=== PATIENT | female | born 1955 | race Caucasian/White ===

== ENCOUNTER 2018-06-29 11:32 | Emergency (ER) | payer BC, SELFPAY ==
[2018-06-29] VITALS (21 sets, daily range): BP systolic 172–211; BP diastolic 82–105; PULSE 99–110; RESP 12–30; TEMP 37–37.2; O2SAT 90–97
--- NOTE | 2018-06-29 11:54 | DI.REPORT_ITS ---
SYMPTOMS/DIAGNOSIS: COUGH PA AND LATERAL CHEST: Comparison is made with April,. The heart size is normal. There is a linear area of atelectasis versus infiltrate seen in the right middle lobe. Minimal linear densities are noted at the left lung base. No pleural effusions are seen. There is no evidence of pneumothorax. IMPRESSION: Right middle lobe atelectasis versus infiltrate.
[2018-06-29 12:04] LABS: Abs Immature Grans 0.02 k/cumm (0.0-0.09); Absolute Basophil Count 0.03 k/cumm (0.0-0.2); Basophils % 0.3; Eosinophils % 2.5; Immature Grans % 0.2; Lymphocytes % 13.4; Mean Corp. HGB Concentration 34.1 g/dL (32.0-36.0); Mean Corpuscular Hemoglobin 32.9 pg (27.0-33.0); Mean Corpuscular Volume 96.5 fL (80-95); Mean Platelet Volume 9.4 fL (8.0-11.0); Monocytes % 4.7; Neutrophils % 78.9; Platelet Count 233 x1000/uL (130-400); RBC 4.56 m/cumm (4.00-5.20); RBC Distribution Width 12.3 % (11.7-14.6); White Blood Cell Count 11.38 k/cumm (4.4-10.8)
[2018-06-29 12:05] LABS: Absolute Eosinophil Count 0.28 k/cumm (0.0-0.7); Absolute Lymphocyte Count 1.52 k/cumm (1.2-3.4); Absolute Monocyte Count 0.53 k/cumm (0.11-0.7); Absolute Neutrophil Count 8.98 k/cumm (1.2-6.7)
[2018-06-29 12:21] LABS: ALT 35 U/L (12-78); AST 25 U/L (15-37); Albumin 3.7 g/dL (3.4-5.0); Alkaline Phosphatase 121 U/L (46-116); Anion Gap 6.9 mmol/L (3-11); BUN 13 mg/dL (7-18); Bilirubin, Total 0.4 mg/dL (0.2-1.0); CO2 31.1 mmol/L (21.0-32.0); CREATININE 0.91 mg/dL (0.55-1.02); Calcium 9.2 mg/dL (8.5-10.1); Chloride 103 mmol/L (98-107); Glucose 119 mg/dL (70-100); Magnesium 1.9 mg/dL (1.8-2.4); Potassium 4.1 mmol/L (3.5-5.1); Sodium 141 mmol/L (136-145); Total Protein 7.9 g/dL (6.4-8.2)
--- NOTE | 2018-06-29 12:23 | ED.GENADUL_ITS ---
Disposition Clinical Impression: Pneumonia, High blood pressure Disposition: HOME Condition: Fair Instructions: Hypertension (ED), Pneumonia (ED) Additional Instructions: Encourage hydration. Tylenol and/or ibuprofen as needed for discomfort. Do not begin your prednisone. Please begin antibiotics. You may use Tessalon Perles as prescribed by her primary care to help with symptomatic management. Please follow-up with primary care this week for reevaluation and to discuss your high blood pressure. If you develop chest pain, difficulty breathing, shortness of breath, visual change, headache, new or worsening symptoms please seek care urgently once again. Prescriptions: Azithromycin [Azithromycin Pack #6] 250 mg PO DIRECTED #6 tablet Referrals: Kimberly Alegria MD [Primary Care Provider] - Medical Decision Making - Lab Data Laboratory Tests 06/29/18 11:56 WBC 11.38 H RBC 4.56 Hgb 15.0 Hct 44.0 MCV 96.5 H MCH 32.9 MCHC 34.1 RDW 12.3 Plt Count 233 MPV 9.4 Immature Gran % 0.2 Neutrophils % 78.9 Lymphocytes % 13.4 Monocytes % 4.7 Eosinophils % 2.5 Basophils % 0.3 Absolute Neutrophils 8.98 H Absolute Lymphocytes 1.52 Absolute Monocytes 0.53 Absolute Eosinophils 0.28 Absolute Basophils 0.03 Laboratory Tests 06/29/18 06/29/18 11:56 11:56 WBC 11.38 H RBC 4.56 Hgb 15.0 Hct 44.0 MCV 96.5 H MCH 32.9 MCHC 34.1 RDW 12.3 Plt Count 233 MPV 9.4 Immature Gran % 0.2 Neutrophils % 78.9 Lymphocytes % 13.4 Monocytes % 4.7 Eosinophils % 2.5 Basophils % 0.3 Absolute Neutrophils 8.98 H Absolute Lymphocytes 1.52 Absolute Monocytes 0.53 Absolute Eosinophils 0.28 Absolute Basophils 0.03 Sodium 141 Potassium 4.1 Chloride 103 Carbon Dioxide 31.1 Anion Gap 6.9 BUN 13 Creatinine 0.91 Estimated GFR/1.73 m2 >= 60.00 Glucose 119 H Calcium 9.2 Magnesium 1.9 Total Bilirubin 0.4 AST 25 ALT 35 Alkaline Phosphatase 121 H Troponin I < 0.02 Total Protein 7.9 Albumin 3.7 Results reviewed for labs ordered during visit: Yes - Radiology Data Radiology results: report reviewed, image reviewed X-ray reviewed by radiologist. Advised that the heart is normal size. There is a linear area of atelectasis versus infiltrate in the right middle lobe. Minimal linear densities are noted in the left lung base. No pleural effusions is seen. There is no evidence of pneumothorax. - Medical Decision Making Patient presents today with chief complaint of hypertension and cough. Patient was diagnosed with bronchitis by primary care. She reports that she is placed on 2 medications but is unclear as to what these are. Patient is to be hypertensive at 210/110. Patient does have history of high blood pressure. Primary reports that a few years ago, when the patient was last seen, her blood pressure was noted to be 170/90. Patient has not been taking any antihypertensive medications. She reports that she has mild headache only elicited with coughing fits. Is currently denying any headache. No visual changes. Denies any nausea, vomiting or diarrhea. Denies any abdominal pain. Denies any chest pain. No shortness of breath or difficulty breathing. We will obtain chest x-ray and laboratory evaluation. In regard to the hypertension, I do not feel that acute intervention is warranted at this time. Patient is asymptomatic nontoxic-appearing. In questioning what her blood pressure has been running at recently as it was several years since her last reading of 170/90. Patient may be running at baseline quite high. And concern for dropping her too quickly may cause undefined. Rather, we will keep the patient to monitor and continue to reevaluate. Patient is afebrile. EKG was obtained and reviewed by Dr. Manning. Advised no acute ischemic changes noted. Patient is in normal sinus rhythm with a rate of 107. Laboratory evaluation significant for leukocytosis with a WBC of 11.38. Patient is a left shift. Otherwise, laboratory evaluation without significant normality. 0.02. Given the length of her symptoms and I feel that repeat troponin is appropriate at this time. Patient has does not express any cardiac symptoms. Chest x-ray concerning for a right middle lobe infiltrate. Discussed findings with the patient. Patient was diagnosed with pneumonia which is consistent with history as well as physical exam. Patient had been placed on prednisone and Tessalon Perles by primary care. Advised against steroids at this point. Rather, I advised that she take antibiotics. Patient will be placed on azithromycin. Encourage hydration. We did discuss beginning her on a low-dose antihypertensive such as lisinopril but patient prefers to hold off at this point. She would prefer to follow-up closely with primary care and discuss this further with them at that time. She was given strict return precautions. Patient's blood pressure since arrival has come down some. She has been staying in the 170s over 90s much of her visit here. According to primary care's history, this is patient's known baseline. Again, patient was given strict return precautions and continues to decline any antihypertensives at this time. All of her questions and concerns were addressed she is in agreement this plan. She will contact primary care to schedule follow-up. History of Present Illness - General Chief complaint: GenMedical Stated complaint: PER [facility] Time Seen by Provider: 06/29/18 11:44 Source: patient, RN notes reviewed Mode of arrival: ambulatory Limitations: no limitations - History of Present Illness Initial comments: Patient is a 62-year-old otherwise healthy female with chief complaint of a high blood pressure. Patient was evaluated by her primary care this morning. Her primary complaint at that time was a cough. She reports she has had a cough for the past week. Was diagnosed with bronchitis and begun on 2 medications, patient is unclear as to what these are. While at primary care office, physician noted the blood pressure to be 210/110 in Center for evaluation of hypertensive emergency. She reports that when she had her blood pressure checked last, in 2014, her blood pressure was 170/90. She was not begun on any antihypertensive medications and has not been in any historically. Patient states that she has a very mild headache when having a coughing fit but is not having any currently. She denies any visual change. She denies abdominal pain. No nausea vomiting. States that aside from her cough she is feeling quite well. No known kidney problems. - Related Data Azithromycin [Azithromycin Pack #6] 250 mg PO DIRECTED #6 tablet 06/29/18 Benzonatate 100 - 200 mg PO TID PRN #30 tab-cap 06/29/18 Ibuprofen 400 mg PO PRN tab-cap 06/29/18 Proventil Hfa 1 puff IH Q4H PRN inhaler 06/29/18 Allergies Allergy/AdvReac Type Severity Reaction Status Date / Time tetracycline Allergy Mild Rash Unverified 07/08/17 10:14 Review of Systems Constitutional: see HPI ENT: as per HPI. denies: ear pain, throat pain, congestion Respiratory: see HPI, cough. denies: shortness of breath Cardiovascular: denies: chest pain, palpitations Gastrointestinal: denies: abdominal pain, nausea, vomiting, diarrhea Genitourinary: denies: urgency (denies change in urinary or bowel habits) Musculoskeletal: denies: back pain Skin: denies: rash, lesions, change in color Neurological: as per HPI. denies: headache, weakness, numbness, paresthesias Past Medical History - Past Medical History Medical history: hypertension General Exam - General Limitations: no limitations General appearance: alert, in no apparent distress - Head Head exam: Present: atraumatic - Eye Eye exam: Present: normal apperance - ENT ENT exam: Present: normal exam, normal orophraynx, mucous membranes moist, TM's normal bilaterally, normal external ear exam - Respiratory Respiratory exam: Present: rales (RLL). Absent: normal lung sounds bilaterally , respiratory distress, wheezes, chest wall tenderness, accessory muscle use - Cardiovascular Cardiovascular Exam: Present: normal rhythm, tachycardia, normal heart sounds - GI/Abdominal GI/Abdominal exam: Present: soft. Absent: distended, tenderness, guarding, rebound, pulsatile mass - Rectal Rectal exam: Present: deferred - Extremities Exam Extremities exam: Absent: pedal edema, calf tenderness - Back Exam Back exam: Present: normal inspection. Absent: tenderness - Neurological Exam Neurological exam: Present: alert, normal gait - Psychiatric Psychiatric exam: Present: normal affect, normal mood - Skin Skin exam: Present: warm, dry, intact, normal color Course Vital Signs - 24 hr 06/29/18 06/29/18 11:37 12:08 Temperature 37.0 C Pulse 108 H Respiratory 16 20 Rate Blood Pressure 211/105 Pulse Oximetry 97
[2018-06-29 12:27] LABS: Troponin I < 0.02 ng/mL (0.00-0.06)
== END 2018-06-29 13:56 | disposition home or self-care (01) ==
PROVIDERS: Physician Assistant; Emergency Provider Student in an Organized Health Care Education/Training Program; PCP Family Medicine
DX: J18.9 Pneumonia, unspecified organism (principal); I10 Essential (primary) hypertension
CPT/HCPCS: 36415; 80053; 93005; 99285; 71046; 83735; 84484; 85025; 93010; 99284

== ENCOUNTER 2018-09-15 00:20 | Outpatient (CLI) | payer BC, SELFPAY ==
--- NOTE | 2018-09-15 10:50 | DI.MAMMO_ITS ---
SYMPTOMS/DIAGNOSIS: SCREENING, Z12.31 MAMMOGRAMS: Mammograms were interpreted according to the usual protocol including computer analysis with CAD system, tomosynthesis and C view imaging. Comparison is with the prior examinations. No masses or microcalcifications are seen. There is nothing to suggest malignancy. IMPRESSION: Negative mammogram. Routine screening is recommended. Category 1 , breast density B. MQSA ASSESSMENT OF FINDINGS: Negative. Category 1. Patient will receive a letter notifying them of these results. BI-RADS category B. There are scattered areas of fibroglandular density.
== END 2018-09-15 00:40 ==
PROVIDERS: PCP Family Medicine; Visit Provider Nurse Practitioner Family
DX: Z12.31 Encounter for screening mammogram for malignant neoplasm of breast (principal)
CPT/HCPCS: 77063; 77067

== ENCOUNTER 2018-12-09 02:33 | Outpatient (CLI) | payer BC, SELFPAY ==
[2018-12-09 11:52] LABS: Anion Gap 7.6 mmol/L (3-11); BUN 15 mg/dL (7-18); CO2 30.4 mmol/L (21.0-32.0); CREATININE 0.85 mg/dL (0.55-1.02); Calcium 8.9 mg/dL (8.5-10.1); Chloride 103 mmol/L (98-107); Cholesterol 210 mg/dL (50-200); Glucose 99 mg/dL (70-100); HDL Cholesterol 48 mg/dL (40-60); LDL CHOLESTEROL 141 mg/dL (<100); Potassium 4.4 mmol/L (3.5-5.1); Sodium 141 mmol/L (136-145); Triglyceride 124 mg/dL (30-150)
== END 2018-12-09 02:53 ==
PROVIDERS: PCP Family Medicine; Visit Provider Family Medicine
DX: I10 Essential (primary) hypertension (principal)
CPT/HCPCS: 36415; 80048; 80061; 83721

== ENCOUNTER 2019-09-20 01:26 | Outpatient (CLI) | payer BC, SELFPAY ==
--- NOTE | 2019-09-20 10:00 | DI.MAMMO_ITS ---
EXAM: MG MAMMO SCREENING CLINICAL HISTORY: screening,z12.39 TECHNIQUE: Mammograms were interpreted according to the usual protocol including computer analysis w [employer] CAD system, tomosynthesis and C-view imaging. COMPARISON: [id number] FINDINGS: The breasts are composed of scattered areas of fibroglandular density, breast density category B. Th ere are no suspicious masses or suspicious microcalcifications. There is no significant interval sanches ge when compared with the previous images. IMPRESSION: Category 1, negative mammogram. Yearly screening mammography is recommended. BI-RADS Cat 1 - Negative Breast Density - Category B - Scattered areas of fibroglandular density
== END 2019-09-20 01:46 ==
PROVIDERS: PCP Family Medicine; Visit Provider Nurse Practitioner Family
DX: Z12.31 Encounter for screening mammogram for malignant neoplasm of breast (principal)
CPT/HCPCS: 77063; 77067

== ENCOUNTER 2020-08-11 11:44 | Outpatient (REF) | payer BC, SELFPAY ==
--- NOTE | 2020-08-11 10:45 | PAPFT_PTH ---
PATIENT: Maryam Heredia LOC: [facility] U#:[id number] AGE/SX: 64/F ROOM: RE08/11/[address]: NACHO Ho : 1955 BED: DIS: 08/11/2020 SPEC #: [id number] RECD: 08/11/20 17:41 STATUS: BRE REQ #: [id number] BARBARA: 08/11/20 10:[address]: Cheryl Villanueva DEPT: [facility] Cytology RECD BY: Cathy Govea ENTERED: 08/11/20 17:42 SP TYPE: PAPFT OTHR DR: Kimberly Alegria MD Tissues: 1 - CX/ENDOCX FOR PAP SMEARS Procedures: PAP THIN PREP/UVM Screening HPV DNA PROBE Comments: [id number]
== END 2020-08-11 12:04 ==
LOC: LBN 11:44
PROVIDERS: PCP Family Medicine; Visit Provider Nurse Practitioner Family
DX: Z12.4 Encounter for screening for malignant neoplasm of cervix (principal); Z11.51 Encounter for screening for human papillomavirus (HPV)
CPT/HCPCS: 88142; 87624

== ENCOUNTER 2020-09-25 00:44 | Outpatient (CLI) | payer BC, SELFPAY ==
--- NOTE | 2020-09-25 09:30 | DI.MAMMO_ITS ---
EXAM: MG MAMMO SCREENING CLINICAL HISTORY: screening TECHNIQUE: Mammograms were interpreted according to the usual protocol including computer analysis w [employer] CAD system, tomosynthesis and C-view imaging. COMPARISON: FINDINGS: The breasts are of moderate density with fairly symmetrical distribution of fibroglandular tissue. N o dominant mass or clumped microcalcification is identified in either breast. The current examinatio n is compared with previous examinations including September 2019 and there has been no gross interval change in appearance in comparison with the prior studies. IMPRESSION: No specific evidence of malignancy at this time. Routine screening examinations are suggested at yea rly intervals due to the family history of breast carcinoma. BI-RADS Category 1 - Negative Breast Density - Category B - Scattered areas of fibroglandular density
== END 2020-09-25 01:04 ==
PROVIDERS: PCP Nurse Practitioner Family; Visit Provider Nurse Practitioner Family
DX: Z12.31 Encounter for screening mammogram for malignant neoplasm of breast (principal)
CPT/HCPCS: 77063; 77067

== ENCOUNTER 2021-09-26 00:38 | Outpatient (CLI) | payer MEDICARE, SELFPAY ==
--- NOTE | 2021-09-26 06:45 | DI.MAMMO_ITS ---
Exam(s) MAMMO SCREENING EXAM: MAMMO SCREENING CLINICAL HISTORY: screening,Z12.39. TECHNIQUE: Bilateral full field digital CC and MLO mammographic images were obtained with 3D tomosyn thesis and utilizing computer aided detection (CAD). COMPARISON: Prior mammograms dating back to 2012, the most recent being September 2020. FINDINGS: In the left breast on 3D cc imaging there is an asymmetric density slightly lateral of center on the CC view, located 3 cm in from the nipple and measuring approximately 3 x 3 millimeters. This was not evident on prior studies. Spot compression view acquired. The right breast on the MLO view there is an asymmetric density posteriorly which is unchanged from p rior study of 2019 and others. No new significant right breast findings. No malignant-appearing microcalcification groups in either breast. There is no significant architectural distortion nor skin thickening-retraction. IMPRESSION: No radiographic evidence of malignancy in right breast. New left breast asymmetric density-possible nodule seen on the CC view. Spot compression cc left kiara ast view recommended and ultrasound. BI-RADS Category 0 - Assessment Incomplete: Need additional imaging evaluation Breast Density - Category B - Scattered areas of fibroglandular density Breast density Category C or D implies that the patient has dense breast tissue. Dense breast tissue can make it harder to find cancer on a mammogram. Dense breast tissue is also associated with an incr eased risk of breast cancer. This information about the result of the mammogram report was provided to the patient to raise their awareness. Use this report when you speak with the patient about their risks for breast cancer, which includes their family history. At that time, you may recommend additional screening tests (Ultrasoun d or MRI) as these tests may add significant information. A negative radiographic report should not delay biopsy if a dominant or clinically suspicious mass is present. Up to ten percent of cancers are not identified on mammography. A negative report may reinforce clinical impression. Adenosis and dense breasts may obscure an underlying neoplasm. False positive reports average 6 to 10%. Patient will receive a letter notifying them of these results.
== END 2021-09-26 00:58 ==
PROVIDERS: PCP Nurse Practitioner Family; Visit Provider Nurse Practitioner Family
DX: Z12.31 Encounter for screening mammogram for malignant neoplasm of breast (principal); R92.8 Other abnormal and inconclusive findings on diagnostic imaging of breast
CPT/HCPCS: 77063; 77067

== ENCOUNTER 2021-09-26 16:15 | Outpatient (CLI) | payer MEDICARE, SELFPAY ==
[2021-09-26 16:22] LABS: Calcium 9.4 mg/dL (8.5-10.1)
[2021-09-26 16:23] LABS: Albumin 3.9 g/dL (3.4-5.0); Alkaline Phosphatase 99 U/L (46-116); BUN 20 mg/dL (7-18); Bilirubin, Total 0.4 mg/dL (0.2-1.0); CREATININE 0.9 mg/dL (0.55-1.02); Calculated LDL 179 mg/dL (<100); Cholesterol 261 mg/dL (<200); Glucose 79 mg/dL (74-106); HDL Cholesterol 47 mg/dL (40-60); Sodium 142 mmol/L (136-145); Total Protein 7.1 g/dL (6.4-8.2); Triglyceride 177 mg/dL (<150)
[2021-09-26 16:24] LABS: ALT 45 U/L (14-59); AST 27 U/L (15-37); Anion Gap 8.8 mmol/L (3-11); CO2 29.2 mmol/L (21.0-32.0); Chloride 104 mmol/L (98-107); Potassium 4.5 mmol/L (3.5-5.1)
== END 2021-09-26 16:16 | disposition home or self-care (01) ==
LOC: LBO 16:18
PROVIDERS: PCP Nurse Practitioner Family; Visit Provider Nurse Practitioner Family
DX: I10 Essential (primary) hypertension (principal); E78.00 Pure hypercholesterolemia, unspecified
CPT/HCPCS: 36415; 80053; 80061

== ENCOUNTER 2021-10-12 00:44 | Outpatient (CLI) | payer MEDICARE, SELFPAY ==
--- NOTE | 2021-10-12 13:30 | DI.MAMMO_ITS ---
Exam(s) MAMMO SCREEN CALL BACK UNI EXAM: MAMMO SCREEN CALL BACK UNI CLINICAL HISTORY: F/U MAMMO, LT BREAST ASYMMETRIC DENSITY NOT ON PRIOR STUDY,? NODULE TECHNIQUE: Spot compression views and tomographic imaging were performed. COMPARISON: 2014 through 26 September 2021 FINDINGS: Spot compression CC view was performed with tomography. There is a circumscribed 3 millimeter nodul e in the subareolar region without suspicious features. This likely represents a cyst or lymph node. No suspicious masses or suspicious microcalcifications are seen. IMPRESSION: BI-RADS Category 2 - Benign Findings Yearly screening mammography is recommended. Breast Density - Category B, scattered fibroglandular densities.
== END 2021-10-12 01:04 ==
PROVIDERS: PCP Nurse Practitioner Family; Visit Provider Nurse Practitioner Family
DX: R92.8 Other abnormal and inconclusive findings on diagnostic imaging of breast (principal); N63.32 Unspecified lump in axillary tail of the left breast
CPT/HCPCS: 77063; 77067

== ENCOUNTER → 2022-06-14 08:57 | Outpatient (BNVA) | payer MEDICARE, OTHER, SELFPAY | PROVIDERS: PCP Nurse Practitioner Family; Referring Provider Nurse Practitioner Family; Visit Provider Physical Therapy Assistant | DX: Z12.11 Encounter for screening for malignant neoplasm of colon (principal) ==

== ENCOUNTER 2022-07-04 10:04 | Day surgery (SDC) | payer MEDICARE, OTHER, SELFPAY ==
[2022-07-04 10:12] VITALS: BP 179/92; PULSE 82; RESP 16; TEMP 36.4; O2SAT 98
[2022-07-04] MEDS: Lactated Ringers 1,000 ML 80 ML IV (10:29)
--- NOTE | 2022-07-04 11:19 | W.ANESPRE ---
General Info Date of Service Date Performed: 07/04/22 Height: 5 ft 1 in Weight: 63.8 kg Body Mass Index (BMI): 26.6 Surgical Procedure: Operation Date: 07/04/22 12:05 Proposed Procedure Side Surgeon p Darrell Powell MD Meds Allergies and Home Medications Allergies Allergy/AdvReac Type Severity Reaction Status Date / Time tetracycline Allergy Mild Rash Verified 07/03/22 11:25 Home Medication Medication Instructions Recorded lisinopril 10 mg tablet 10 mg PO DAILY #90 tabs 09/21/21 Current Visit Medications: Current Medications Generic Name Dose Route Start Last Admin Trade Name Freq PRN Reason Stop Dose Admin Ringer's Solution 1,000 mls @ 80 mls/hr 07/04/22 06:00 07/04/22 10:29 IV 08/02/22 23:59 80 mls/hr INFUSION KAYLEY Administration IV Miscellaneous Supplies 1 each 07/04/22 06:00 Iv Access IV 08/02/22 23:59 DIRECTED KAYLEY Sodium Chloride 0 ml 07/04/22 06:00 Normal Saline Flush 10 Ml Syr IV 08/02/22 23:59 PRN PRN Sodium Chloride 0 ml 07/04/22 06:00 Normal Saline 10 Ml Vial IJ 08/02/22 23:59 DIRECTED PRN Sterile Water 0 ml 07/04/22 06:00 Water,Injection,Sterile 10 Ml Vial IJ 08/02/22 23:59 DIRECTED PRN PFSH Active Problems Active Problems: Problem Status Onset Code Screening for colon cancer Z12.11 Hyperlipidemia E78.5 Hypertension I10 Family history of breast cancer 06/10/16 Z80.3 Medical History Medical History Frequent UTI (06/06/15) Tobacco Smoking/Tobacco Use Status: Never Passive smoking exposure: Yes Second hand exposure: Yes Alcohol Alcohol Intake: current Alcohol intake frequency: a few times a month Alcohol type: wine Substance Use Substance use: Never Substance use type: does not use Prental History History 3 Para 3 Hx # Term Pregnancies Multiple births Hx # Pregnancies Ectopic pregnancies AB induced Hx Number of Living Children AB spontaneous Vital Signs and Lab Results Vital Signs Most Recent Vital Signs in EMR: Most Recent Vital Signs Temp Pulse Resp BP Pulse Ox 36.4 C L 82 16 179/92 H 98 07/04/22 10:12 07/04/22 10:12 07/04/22 10:12 07/04/22 10:12 07/04/22 10:12 Lab Results Blood Type / Crossmatch: No Data to Display Complete Blood Count: No Data to Display Complete Metabolic Panel: No Data to Display Liver Function Panel: No Data to Display Coagulation Panel: No Data to Display Cardiac Panel: No Data to Display Arterial Blood Gas: No Data to Display Venous Blood Gas: No Data to Display Pancreas Panel: No Data to Display Thyroid Panel: No Data to Display Infectious Disease: No Data to Display Blood Cultures: No Data to Display Toxicology Panel: No Data to Display Anesthesia Assessment and Plan Anesthesia History Personal History: No History of General Anesthesia Family History: No Family History of Anesthesia Complications Exercise Tolerance Exercise Tolerance: Metabolic Equivalents>4 Pertinent Negatives Pertinent Negatives: No Symptoms of GERD, No Major Cardiovascular Symptoms or Complaints, No Major Pulmonary Symptoms or Complaints and No History of CVA/TIA Cardiac & Pulmonary Exam Cardiac Exam: Normal S1/S2 Heart Sounds Pulmonary Exam: Clear Bilateral Breath Sounds Implantable Cardiac Device Does patient have a Pacemaker or an ICD?: No Airway Exam Known Difficult Airway: No Mallampati Class: 1 Mouth Opening: Normal (> 3cm) Thyromental Distance: Greater than 3 cm Neck Range of Motion: Full ROM Neck Circumference: Normal Teeth Condition: Normal Dentition ASA Classification ASA Score: ASA 2 Emergency Case?: No NPO Status NPO Status: NPO Clears >2 hours, Solids >8 hours Anesthesia Plan Resuscitation Status: Full Code Anesthesia Technique: MAC Anesthesia Airway Planned: Natural Airway Monitors Used: Standard Monitors
[2022-07-04 11:21] VITALS: BMI 26.6
--- NOTE | 2022-07-04 11:27 | PDOC.DSDIS_ITS ---
Discharge Plan Disposition Patient Disposition: HOME Condition: Good Discharge Details Reason For Visit: screening colonoscopy Attending Provider: Andrew Powell Primary Care Provider: Jimmy Hawkins Home Meds and New Rx's Prescriptions: Continued lisinopril 10 mg tablet 10 mg PO DAILY Qty: 90 4RF Discharge Instructions Instructions: Colonoscopy (DC) Additional Instructions: 1. If tolerated, consume a soft, low fiber diet for 1-2 days. [address] Do not drive, drink alcohol, operate machinery, make critical decisions, or do activities that require coordination or balance for 24 hours. 3. Because air was put into your colon during the procedure, expelling air from your rectum (passing gas or farting) is normal. 4. You may not have a bowel movement for 1-3 days because of the colonoscopy prep. This is normal. 5. Go directly to the emergency room if you notice any of the following: Develop chills (warm to touch), or if you have a thermometer and your temperature is above 101 Difficulty breathing or difficultly swallowing Persistent vomiting Severe abdominal pain, other than gas cramps Severe chest pain Black, tarry stools Any bleeding ? exceeding one tablespoon 6. Call your physician if the site where your intravenous was started becomes red, swollen, painful, and warm to touch. 7. Your physician has reviewed your pre-procedure medications. Please continue to take those medications as previously ordered. You will be given specific information/education regarding any changes to your medications before leaving. Referrals: Jimmy Hawkins, [employer] [Primary Care Provider] - Activity:: Activity as Tolerated Diet:: As Tolerated Discharge Orders Discharge Orders: Discharge Order (Routine); Ordered 07/04/22 Ordered By: Andrew Powell DS: Diagnosis Discharge Diagnosis (1) Colon polyp: Status: Acute Asessment and Plan: my office will call with results from the biopsy
--- NOTE | 2022-07-04 11:28 | COLE_ITS ---
Colonoscopy Report Date of procedure: 07/04/22 Pre-op diagnosis general: screening colonoscopy Post-op diagnosis procedure note: other (ascending colon polyp around 120 cm) Procedure: screening colonoscopy Surgeon: Andrew Powell Anesthesia Type: General:No Airway Estimated blood loss (mL): 10 Pathology: other (colon polyp at 120 cm) Complications: None Disposition: same day Indications: screening colonoscopy Prep: Miralax/Dulcolax Procedure Start Time: 11:31 Procedure End Time: 11:49 Retraction Time: 19 Findings: 1.5 cm polyp in ascending colon around 120 cm Procedure Description: After the induction of monitored anesthetic care, and with the patient in left lateral decubitus position, I began by performing an external anorectal exam.? Perineum and skin were normal, as was the anal verge.? There was no evidence of external hemorrhoids.? Next, I performed a digital rectal exam.? I did not appreciate any abnormal findings.? Next, I advanced a colonoscope into the rectal vault.? I performed retroflexion.? I did not see signs of pathologic internal hemorrhoids.? Using insufflation, I then advanced the colonoscope beyond the rectal folds and into the sigmoid colon before advancing towards the cecum.? The quality of the prep was excellent.? The scope was noted to be in the cecum by identification of the ileocecal valve and appendiceal orifice.?Around 120 cm from the anal verge I identified a 1.5 cm polyp. ?It appeared flat in character. ?I was able to remove this with cold forceps biopsies using 2 passes. ?I examined the site, and there was minimal bleeding. ?Once this was completed, I continued to withdraw the scope and examine the remainder of the colonic m ucosa. I then began withdrawing the colonoscope using repeated irrigation as necessary for full evaluation of the colonic mucosa. ?Once the scope was withdrawn to the level of the rectum, great care was taken to examine portions of the rectal folds.? Finally, the scope was withdrawn and the patient was brought to the same-day surgery recovery unit as the anesthetic wore off. ?The findings and instructions were shared with the patient prior to discharge.
--- NOTE | 2022-07-04 11:43 | BOWEL_PTH ---
PATIENT: Maryam Heredia LOC: [facility] U#:[id number] AGE/SX: 66/F ROOM: RE07/04/[address]: Andrew Powell MD : 1955 BED: DIS: 07/04/2022 SPEC #: [id number] RECD: 07/04/22 13:06 STATUS: BRE [facility] #: [id number] BARBARA: 07/04/22 11:[address]: Andrew Powell DEPT: Surgical Specimen RECD BY: Cathy Govea ENTERED: 07/04/22 13:07 SP TYPE: Bowel OTHR DR: Jimmy Hawkins, KIRAN Tissues: 1 - BIOPSY BOWEL Procedures: GROSS AND MICRO LEVEL 4 Comments: [id number]
[2022-07-04 12:02] VITALS: BP 127/79; PULSE 73; RESP 16; TEMP 36.3; O2SAT 95
--- NOTE | 2022-07-04 12:02 | W.ANESPOSTOP ---
Postoperative Evaluation Date, Time and Location Date Performed: 07/04/22 Time Performed: 12:02 Patient Location: Day Surgery Unit Vital Signs Most Recent Imported Vital Signs: Most Recent Vital Signs Temp Pulse Resp BP Pulse Ox 36.4 C L 82 16 179/92 H 98 07/04/22 10:12 07/04/22 10:12 07/04/22 10:12 07/04/22 10:12 07/04/22 10:12 Most Recent Manually Entered Vital Signs: Adult Blood Pressure: 127/79 Heart Rate: 72 Respirations: 12 Oxygen Saturation (%): 97 Temperature (C): 36.3 C Pain Score (0-10 Scale): 0 Pain Score Most Recent Pain Score: Most Recent Pain Score Pain Level 0 07/04/22 10:12 Assessment Mental Status: Awake (Alert & Oriented to Patient Baseline) Airway and Respiratory Function: Patent airway with normal (patient baseline) respiratory exam Cardiovascular Function: Hemodynamically Stable Hydration Status: Adequately Hydrated Nausea & Vomiting: No Nausea or Vomiting Pain: Pt. Denies Any Pain Peripheral Nerve Block: Patient did not receive a nerve block
[2022-07-04 12:03] VITALS: BP 127/79; PULSE 72; RESP 12; TEMPC 36.3; O2SAT 97
[2022-07-04 12:30] VITALS: BP 159/83; PULSE 61; RESP 16; TEMP 36.5; O2SAT 99
== END 2022-07-04 12:50 | disposition home or self-care (01) ==
PROVIDERS: PCP Nurse Practitioner Family; Visit Provider Surgery
PROC: 0DJD8ZZ Inspection of Lower Intestinal Tract, Via Natural or Artificial Opening Endoscopic (ICD-10-PCS; CPT 45378; principal; 2022-07-04 12:00)
DX: Z12.11 Encounter for screening for malignant neoplasm of colon (principal); K63.5 Polyp of colon; I10 Essential (primary) hypertension; E78.5 Hyperlipidemia, unspecified
CPT/HCPCS: 45380; 88305

== ENCOUNTER → 2022-10-15 01:57 | Outpatient (CLI) | payer MEDICARE, OTHER, SELFPAY ==
--- NOTE | 2022-10-15 11:45 | DI.MAMMO_ITS ---
Exam(s) MAMMO SCREENING EXAM: MAMMO SCREENING CLINICAL HISTORY: screening TECHNIQUE: Bilateral full field digital CC and MLO mammographic images were obtained with 3D tomosyn thesis and utilizing computer aided detection (CAD). COMPARISON: Available for comparison. FINDINGS: Masses/Architectural Distortion: None seen. Microcalcifications: No suspicious pleomorphic-type are seen. Skin Thickening/Nipple Retraction: None. IMPRESSION: 1. No significant interval change with no specific features of malignancy noted. 2. Unless there is more urgent need, screening mammography is recommended, as per [place] [employer] guidelines. BI-RADS Category 1 - Negative Breast Density - Category B - Scattered areas of fibroglandular density Breast density category C or D implies that the patient has dense breast tissue. Dense breast tissue is very common and is not abnormal but dense breast tissue can make it harder to find cancer on a ma mmogram. Also, dense breast tissue may increase their breast cancer risk. This information about the result of the mammogram report was provided to the patient to raise their awareness. Use this report when you speak with the patient about their risks for breast cancer, which includes their family hist ory. At that time, you may recommend for more screening tests (Ultrasound or MRI) as they might be us eful based on their risk. A negative radiographic report should not delay biopsy if a dominant or clinically suspicious mass is present. Up to ten percent of cancers are not identified on mammography. A negative report may reinforce clinical impression. Adenosis and dense breasts may obscure an underlying neoplasm. False positive reports average 6 to 10%. Patient will receive a letter notifying them of these results.
== END ==
PROVIDERS: PCP Nurse Practitioner Family; Visit Provider Nurse Practitioner Women's Health
DX: Z12.31 Encounter for screening mammogram for malignant neoplasm of breast (principal)
CPT/HCPCS: 77063; 77067

== ENCOUNTER 2022-10-17 03:40 | Outpatient (CLI) | payer MEDICARE, OTHER, SELFPAY ==
[2022-10-17 12:40] LABS: CREATININE 0.8 mg/dL (0.55-1.02); Calculated LDL 150 mg/dL (<100); Cholesterol 235 mg/dL (<200); Estimated GFR 81.21 (mL/min/1.73m2); HDL Cholesterol 50 mg/dL (40-60); Potassium 4.2 mmol/L (3.5-5.1); Triglyceride 178 mg/dL (<150)
== END 2022-10-17 03:41 | disposition home or self-care (01) ==
LOC: LBO 03:41
PROVIDERS: PCP Nurse Practitioner Family; Visit Provider Nurse Practitioner Family
DX: I10 Essential (primary) hypertension (principal); E78.5 Hyperlipidemia, unspecified
CPT/HCPCS: 36415; 80061; 82565; 84132

== ENCOUNTER 2023-06-24 13:23 | Emergency (ER) | payer MEDICARE, OTHER, SELFPAY ==
[2023-06-24] VITALS (8 sets, daily range): BP systolic 170–195; BP diastolic 71–88; PULSE 52–90; RESP 18–20; TEMP 36.7; O2SAT 98–99
--- NOTE | 2023-06-24 13:30 | RT.EKG_ITS ---
APPROVED REPORT Exam: Resting ECG Reason for Exam: upper abd pain radiating to back. Patient Location: E HR:81 bpm ECG Measurements Heart Rate 81 AXIS TN 115 P 45 QRSd 89 QRS 26 QT 393 T 54 QTc 457 Conclusion Sinus rhythm...normal P axis, V-rate 60- [address] depression, diffuse leads...ST <-0.03mV, ant/lat/inf
--- NOTE | 2023-06-24 13:40 | W.ED.GENAD ---
Discharge Plan Disposition Patient Disposition: Home Condition: Stable Discharge Details Clinical Impression: Biliary colic, Cholelithiasis Primary Care Provider: Jimmy Hawkins ED Provider: Rachel Green Home Meds and New Rx's Prescriptions: New levofloxacin 750 mg tablet 750 mg PO DAILY Qty: 10 0RF Continued ascorbate calcium (vitamin C) 500 mg tablet 500 mg PO DAILY cholecalciferol (vitamin D3) 25 mcg (1,000 unit) capsule 25 mcg PO DAILY lisinopril 10 mg tablet 10 mg PO DAILY Qty: 90 4RF Discharge Instructions Instructions: Acute Abdominal Pain (DC) Additional Instructions: Clear fluids and bland diet tonight. Stay away from fatty foods. Take Tylenol 650 mg every 6 hours and/or ibuprofen 600 mg every 6 hours as needed for pain. Levaquin as prescribed. Your next dose will be tomorrow evening. Dr. Bardales's office should call you in the morning for a follow-up appointment for tomorrow. Return to ED for fever of 100.4 or above, uncontrolled pain, protracted vomiting, any other concerns. Discharge Data Discharge Date/Time-TO BE ENTERED AT DEPARTURE: 06/24/23 18:49 Medical Decision Making Patient has a large gallstone in her gallbladder. There was no wall thickening or pericholecystic fluid. I discussed the case with she, her , and Dr. Best from surgery. Dr. Best concurs that we should put the patient on antibiotics due to her elevated blood white blood cell count. She requests Levaquin 750 mg p.o. daily. She will see the patient in the office tomorrow. This was relayed to the patient and her . The patient will return to the ED for fever of 100.4 or above, uncontrolled pain or vomiting, any other concerns. The patient did not want anything stronger than ibuprofen or Tylenol. Medical Records Medical records reviewed: Yes I reviewed the patient's medical records. Imaging Data Radiologic Study: Imaging: Ultrasound (Right upper quadrant ultrasound was significant for large stone in the gallbladder with gallbladder distention. There is no wall thickening or pericholecystic fluid.) Lab Data Lab results reviewed: Yes I reviewed the patient's lab results. Lab results narrative: Patient's white blood cell count is 15.8 thousand with differential pending. Her glucose is 115 and calcium is 10.5. Troponin and lipase are pending. Urinalysis shows 5-10 reds with a small amount of leuk esterase, moderate mL, and rare epis. 1800 somehow labs got missed and the patient had to be redrawn. Lipase and 2 trops are neg. ECG Data Attestation: I personally reviewed and interpreted this ECG (s) as follows: (Normal sinus rhythm at 80, diffuse ST depression, no old EKG for comparison) Interpretation: Exam(s) US ABDOMEN LIMITED EXAM: ? US ABDOMEN LIMITED CLINICAL HISTORY: ? RUQ, epig pain TECHNIQUE:? Ultrasound abdomen performed using standard protocol. COMPARISON:? No exams were available for comparison FINDINGS: LIVER: Normal size.? Normalechogenicity.? No focal liver lesions are seen.. GALLBLADDER: Single large mobile gallstone measuring 2.5 cm. The gallbladder appears somewhat distended.? No evidence of wall thickening. No pericholecystic fluid identified. ROSE'S SIGN: Negative. BILIARY SYSTEM: No intrahepatic or extrahepatic biliary ductal dilation. RIGHT KIDNEY: Normal size. No evidence of renal calculi. No evidence of hydronephrosis. No suspicious renal mass.? No cyst identified. PANCREAS: Normal where visualized. ABDOMINAL AORTA AND IVC: Visualized portions normal caliber. ASCITES: None seen. IMPRESSION: The gallbladder appears somewhat distended and contains a single mobile gallstone.? No definite evidence of acute cholecystitis. HPI General Date/Time Provider Initiated Documentation: 06/24/23 13:27. HPI Narrative: This 67-year-old female patient presents with a chief complaint of epigastric pain that awoke her overnight. Patient states that the gnawing pain does not radiate anywhere. She says she took an ibuprofen around 5 AM but then vomited up the water that she took with it. A shower later on this morning helped the pain but then it got worse again. Nothing else makes it better or worse. She has had no fever or chills. There is no shortness of breath or chest pain. She has no diarrhea. There are no URI symptoms. She has no pedal edema or calf pain. The pain is moderate and she declines pain medication in the ED. Pain has been relatively constant. Patient does not drink alcohol or smoke. Related Data Home Medications Medication Instructions Recorded Confirmed lisinopril 10 mg tablet 10 mg PO DAILY #90 tabs 09/05/22 06/24/23 ascorbate calcium (vitamin C) 500 500 mg PO DAILY 10/03/22 06/24/23 mg tablet cholecalciferol (vitamin D3) 25 25 mcg PO DAILY 10/03/22 06/24/23 mcg (1,000 unit) capsule levofloxacin 750 mg tablet 750 mg PO DAILY #10 tabs 06/24/23 Previous Rx's Medication Instructions Recorded lisinopril 10 mg tablet 10 mg PO DAILY #90 tabs 09/05/22 levofloxacin 750 mg tablet 750 mg PO DAILY #10 tabs 06/24/23 Allergies Allergy/AdvReac Type Severity Reaction Status Date / Time tetracycline Allergy Mild Rash Verified 06/24/23 13:30 General Stated Complaint: Abd Prob ARLEEN: 3 Review of Systems Constitutional Constitutional: Denies chills, Denies fever(s), Denies headache(s) and Denies weakness Eyes Eyes: Denies diplopia and Reports other (no redness) ENT Ears, Nose, Mouth, and Throat: Denies otalgia, Denies headache(s), Denies nasal congestion, Denies nasal discharge, Denies neck pain and Denies sore throat Cardiovascular Cardiovascular: Denies chest pain, Denies palpitations and Denies dyspnea Respiratory Respiratory: Denies cough and Denies dyspnea Gastrointestinal Gastrointestinal: Reports abdominal pain, Denies diarrhea, Reports nausea and Reports vomiting Genitourinary Genitourinary: Denies dysuria Musculoskeletal Musculoskeletal: Denies myalgias, Denies muscle weakness, Denies neck pain, Denies numbness and Reports other (edema) Integumentary/Breasts Skin/Breast: Denies change in pigmentation and Denies rash Neurologic Neurologic: Denies headache(s), Denies numbness and Denies weakness Endocrine Endocrine: Denies palpitations PFSH All Active Problems (Updated 06/24/23 @ 18:34 by Rachel Green MD) Biliary colic (Acute) Cholelithiasis (Acute) COVID-19 (Acute) 07/15/22 Vaccinated Serrated adenoma of colon (Acute) Colon polyp (Acute) Hyperlipidemia (Acute) Hypertension (Chronic) Family history of breast cancer (Acute 06/10/16) Mother Medical History (Updated 06/24/23 @ 18:34 by Rachel Green MD) Frequent UTI (06/06/15) Screening for colon cancer Surgical History (Updated 07/09/22 @ 06:19 by Cammy Wyman RN) History of colonoscopy (~06/2022) Family History Mother Breast cancer Father Essential hypertension Heart disease CABG/4 STENTS AGE 70 Prostate cancer Sister No problems noted. Sister No problems noted. Brother No problems noted. Maternal Grandfather , age 93 No problems noted. Paternal Grandfather , age 81 Alcohol abuse Maternal Grandmother , age 97 Asthma Hypertension Paternal Grandmother , age 90 No problems noted. Son No problems noted. Son No problems noted. Daughter No problems noted. 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 Pets and animals: No Sexually active: Yes Do you think of yourself as: straight/heterosexual Current gender identity: female What is your relationship status?: How often do you talk on the phone with friends or family?: twice per week How often do you get together with friends or relatives?: three or more times per week How often do you attend restorationism or cheondoism services?: decline to answer Do you belong to any clubs or organized social groups?: no Panel score (0-1 are the most socially isolated patients): 2 What type of physical activity do you participate in: walking, bicycling and other Details: gardening,chores Duration: 30-45 minutes/day Frequency: 5-6 times per week Lorie/Yarsani: Congregational Special lorie needs: No Seatbelt use: always Helmet use: No Drive intox or ride 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: No Do you feel safe at home: Yes Do you feel safe in your relationship?: Yes Victim of physical abuse: No Victim of emotional abuse: No Victim of sexual abuse: No Would you like helpful sources: No History History 3 Para 3 Hx # Term Pregnancies Multiple births Hx # Pregnancies Ectopic pregnancies AB induced Hx Number of Living Children AB spontaneous Exam Const General: no acute distress, well developed, well groomed and not in acute distress Nutritional Appearance: well nourished Orientation: alert and oriented x3 [facility] Head: normocephalic and atraumatic Ears: external ears normal Mouth: oropharynx normal and moist mucous membranes Throat: posterior oropharynx normal Eyes Conjunctivae: conjunctivae normal Neck Neck: full ROM and supple Chest Chest: normal inspection of the chest Resp Effort & Inspection: normal respiratory effort Auscultation: clear to auscultation bilaterally Cardio Rate: regular rate Rhythm: regular rhythm Heart Sounds: no murmurs and no rubs GI Inspection: normal to inspection Palpation: soft, nontender and other (non distended) Auscultation: normal bowel sounds Skin General skin exam: no rashes or lesions noted and other (pink, warm, dry) Neuro General: patient alert, patient awake and patient oriented x3 Speech: speech normal Motor: other (MENENDEZ) Sensory Exam: no sensory deficits noted Extrem General: normal to inspection, full ROM and pedal edema present Psych Mental Status: mental status grossly normal Speech and Movement: speech and movement normal Affect: normal affect Course Vital Signs Vital signs: Vital Signs Temperature 36.7 C 06/24/23 13:27 Pulse 90 06/24/23 13:27 Respiratory Rate 18 06/24/23 13:27 Blood Pressure 185/88 H 06/24/23 13:27 Pulse Oximetry 98 06/24/23 13:27 Temperature 36.7 C 06/24/23 13:27 Temperature Source Oral 06/24/23 13:27 Pulse 90 06/24/23 13:27 Respiratory Rate 18 06/24/23 13:27 Respiratory Effort Normal 06/24/23 13:38 Blood Pressure 185/88 H 06/24/23 13:27 Pulse Oximetry 98 06/24/23 13:27 Oxygen Delivery Method Room Air 06/24/23 13:27 Oxygen Flow Rate 0 06/24/23 13:27 Pain Level 6 06/24/23 13:27
[2023-06-24 13:46] LABS: HGB 16.1 g/dL (11.2-15.7); MCH 32.5 pg (27.0-33.0); MCV 93 fL (80-95); MPV 9.3 fL (8.0-11.0); Platelet Count 286 10^3/uL (130-400); RBC 4.95 10^6/uL (3.93-5.22); RDW 11.9 % (11.7-14.6); RDW-SD 40.7 fL; WBC 15.78 10^3/uL (4.4-10.8)
[2023-06-24 13:52] LABS: Bilirubin Negative (Negative); Blood Moderate (Negative); Clarity Clear (Clear); Glucose Negative (Negative); Ketones Negative (Negative); Leukocyte Esterase Small (Negative); Nitrite Negative (Negative); Specific Gravity 1.025 (1.005-1.025); Urobilinogen 0.2 mg/dL (Up to 0.2)
[2023-06-24] MEDS: Normal Saline 1,000 ML 1000 ML IV (13:58)
[2023-06-24 13:59] LABS: Bacteria Moderate HPF (Negative); C & S Indicated? Yes; Casts Negative LPF (Negative); Crystals Negative HPF (Negative); Epithelial Cells Rare HPF (Negative); Mucus Negative (Negative); Other Cells Negative (Negative)
[2023-06-24 14:07] LABS: ALT 32 U/L (14-59); AST 25 U/L (15-37); Alkaline Phosphatase 112 U/L (46-116); Anion Gap 8.6 mmol/L (3-11); BUN 14 mg/dL (7-18); Bilirubin, Total 0.4 mg/dL (0.2-1.0); CO2 28.4 mmol/L (21.0-32.0); CREATININE 0.9 mg/dL (0.55-1.02); Calcium 10.5 mg/dL (8.5-10.1); Chloride 100 mmol/L (98-107); Estimated GFR 70.07 (mL/min/1.73m2); Glucose 115 mg/dL (74-106); Potassium 3.8 mmol/L (3.5-5.1); Sodium 137 mmol/L (136-145); Total Protein 7.9 g/dL (6.4-8.2)
--- NOTE | 2023-06-24 16:11 | DI.US_ITS ---
Exam(s) US ABDOMEN LIMITED EXAM: US ABDOMEN LIMITED CLINICAL HISTORY: RUQ, epig pain TECHNIQUE: Ultrasound abdomen performed using standard protocol. COMPARISON: No exams were available for comparison FINDINGS: LIVER: Normal size. Normalechogenicity. No focal liver lesions are seen.. GALLBLADDER: Single large mobile gallstone measuring 2.5 cm. The gallbladder appears somewhat distend ed. No evidence of wall thickening. No pericholecystic fluid identified. ROSE'S SIGN: Negative. BILIARY SYSTEM: No intrahepatic or extrahepatic biliary ductal dilation. RIGHT KIDNEY: Normal size. No evidence of renal calculi. No evidence of hydronephrosis. No suspicious renal mass. No cyst identified. PANCREAS: Normal where visualized. ABDOMINAL AORTA AND IVC: Visualized portions normal caliber. ASCITES: None seen. IMPRESSION: The gallbladder appears somewhat distended and contains a single mobile gallstone. No definite evide nce of acute cholecystitis. DATA REPOSITORY:
[2023-06-24 17:34] LABS: Lipase 43 U/L (16-77); Troponin I < 50 ng/L (<or=60)
[2023-06-24 17:43] LABS: Troponin I < 50 ng/L (<or=60)
[2023-06-24 18:21] LABS: Abs Immature Grans 0.05 10^3/uL (0.0-0.06); Absolute Basophil Count 0.05 10^3/uL (0.0-0.2); Absolute Eosinophil Count 0.01 10^3/uL (0.0-0.7); Absolute Lymphocyte Count 1.61 10^3/uL (1.2-3.4); Absolute Monocyte Count 0.74 10^3/uL (0.1-0.8); Absolute Neutrophil Count 13.52 10^3/uL (1.2-6.7); Basophils % 0.3; Eosinophils % 0.1; Immature Grans % 0.3; Lymphocytes % 10.1; Monocytes % 4.6; Neutrophils % 84.6
[2023-06-24] MEDS: Ketorolac 15 MG/ML VIAL IVP (18:29)
--- NOTE | 2023-06-24 18:31 | NUR.NOTE ---
Nursing Note: REFERRAL TO SURGERY FOR GALLBLADDER
[2023-06-24] MEDS: levoFLOXacin 500 MG, levoFLOXacin 250 MG 750 MG PO (18:42)
== END 2023-06-24 18:49 | disposition home or self-care (01) ==
PROVIDERS: Emergency Provider Emergency Medicine; PCP Nurse Practitioner Family
DX: R10.13 Epigastric pain (principal); K80.20 Calculus of gallbladder without cholecystitis without obstruction; I10 Essential (primary) hypertension; E78.5 Hyperlipidemia, unspecified
CPT/HCPCS: 80053; 83690; 85027; 93005; 96361; 96374; 99284; 76705; 81003; 81015; 84484; 85007; 87086; 93010; J1885

== ENCOUNTER → 2023-06-25 10:16 | Outpatient (BNVA) | payer MEDICARE, OTHER, SELFPAY | PROVIDERS: PCP Nurse Practitioner Family; Referring Provider Nurse Practitioner Family; Visit Provider Surgery | DX: K80.50 Calculus of bile duct without cholangitis or cholecystitis without obstruction (principal) | CPT/HCPCS: 99213 ==

== ENCOUNTER → 2023-07-09 08:29 | Outpatient (BNVA) | payer MEDICARE, OTHER, SELFPAY | PROVIDERS: PCP Nurse Practitioner Family; Referring Provider Nurse Practitioner Family; Visit Provider Surgery | DX: K80.20 Calculus of gallbladder without cholecystitis without obstruction (principal) | CPT/HCPCS: 99213 ==

== ENCOUNTER 2023-10-16 02:02 | Outpatient (CLI) | payer MEDICARE, OTHER, SELFPAY ==
[2023-10-16 09:21] LABS: Calculated LDL 175 mg/dL (<100); Cholesterol 248 mg/dL (<200); HDL Cholesterol 56 mg/dL (40-60); Triglyceride 89 mg/dL (<150)
== END 2023-10-16 02:03 | disposition home or self-care (01) ==
LOC: LBO 02:06
PROVIDERS: PCP Nurse Practitioner Family; Visit Provider Nurse Practitioner Family
DX: E78.5 Hyperlipidemia, unspecified (principal)
CPT/HCPCS: 36415; 80061

== ENCOUNTER → 2023-10-22 00:57 | Outpatient (CLI) | payer MEDICARE, OTHER, SELFPAY ==
--- NOTE | 2023-10-22 07:00 | DI.MAMMO_ITS ---
Exam(s) MAMMO SCREENING EXAM: MAMMO SCREENING CLINICAL HISTORY: screening,z12.39. TECHNIQUE: Bilateral full field digital CC and MLO mammographic images were obtained with 3D tomosyn thesis and utilizing computer aided detection (CAD). COMPARISON: Prior mammograms were reviewed. FINDINGS: There has been no significant change in the appearance and distribution of the fibroglandular tissue. There are no CAD designations. There are no new spiculated masses nor malignant appearing microcalcification groups. There is no significant architectural distortion nor skin thickening-retraction. IMPRESSION: No radiographic evidence of malignancy. BI-RADS Category 1 - Negative Breast Density - Category B - Scattered areas of fibroglandular density Breast density Category C or D implies that the patient has dense breast tissue. Dense breast tissue can make it harder to find cancer on a mammogram. Dense breast tissue is also associated with an incr eased risk of breast cancer. This information about the result of the mammogram report was provided to the patient to raise their awareness. Use this report when you speak with the patient about their risks for breast cancer, which includes their family history. At that time, you may recommend additional screening tests (Ultrasoun d or MRI) as these tests may add significant information. A negative radiographic report should not delay biopsy if a dominant or clinically suspicious mass is present. Up to ten percent of cancers are not identified on mammography. A negative report may reinforce clinical impression. Adenosis and dense breasts may obscure an underlying neoplasm. False positive reports average 6 to 10%. Patient will receive a letter notifying them of these results.
== END ==
PROVIDERS: PCP Nurse Practitioner Family; Visit Provider Nurse Practitioner Family
DX: Z12.31 Encounter for screening mammogram for malignant neoplasm of breast (principal)
CPT/HCPCS: 77063; 77067

== ENCOUNTER 2024-10-28 02:06 | Outpatient (CLI) | payer MEDICARE, OTHER, SELFPAY ==
--- NOTE | 2024-10-28 07:45 | DI.MAMMO_ITS ---
Exam(s) MAMMO SCREENING EXAM: MAMMO SCREENING CLINICAL HISTORY: screening, Z12.39. TECHNIQUE: Bilateral full field digital CC and MLO mammographic images were obtained with 3D tomosyn thesis and utilizing computer aided detection (CAD). COMPARISON: Prior mammograms were reviewed. Significant family history. Mother diagnosed breast cancer age 50 FINDINGS: There has been no significant change in the appearance and distribution of the fibroglandular tissue. There are no CAD designations. There are no new spiculated masses nor malignant appearing microcalcification groups. There is no significant architectural distortion nor skin thickening-retraction. IMPRESSION: No radiographic evidence of malignancy. BI-RADS Category 1 - Negative Breast Density - Category B - Scattered areas of fibroglandular density Breast density Category C or D implies that the patient has dense breast tissue. Dense breast tissue can make it harder to find cancer on a mammogram. Dense breast tissue is also associated with an incr eased risk of breast cancer. This information about the result of the mammogram report was provided to the patient to raise their awareness. Use this report when you speak with the patient about their risks for breast cancer, which includes their family history. At that time, you may recommend additional screening tests (Ultrasoun d or MRI) as these tests may add significant information. A negative radiographic report should not delay biopsy if a dominant or clinically suspicious mass is present. Up to ten percent of cancers are not identified on mammography. A negative report may reinforce clinical impression. Adenosis and dense breasts may obscure an underlying neoplasm. False positive reports average 6 to 10%. Patient will receive a letter notifying them of these results.
--- NOTE | 2024-10-28 13:12 | DI.DEXA_ITS ---
Exam(s) XR DEXA BONE DENSITY W/WO LUCIEN EXAM: XR DEXA BONE DENSITY W/WO LUCIEN CLINICAL HISTORY: Screening, menopausal disorder-N95.9 TECHNIQUE: Routine DEXA evaluation of the lumbar spine, hip, or forearm. COMPARISON: No exams were available for comparison FINDINGS: Performed on a Hologic unit. Lateral image: No compression fracture evident. Lumbar Spine total T-score: -0.2 Hip total T-score:-0.2 Independent reading at the level of the femoral neck yields T-score of -0.6 Forearm total T-score: -1.1 IMPRESSION: Bone mineral density measures in the normal range the lumbar spine and hip and in osteopenia range fo r the wrist. Fracture risk is low and moderate, respectively. Note: Any spine fracture indicates 5x risk for subsequent spine fracture and 2x risk for subsequent h ip fracture. World Health Organization criteria for BMD interpretation classify patients: Normal...... T- Score at or above -1.0 Osteopenic... T- Score between -1.0 and -2.5 Osteoporosis... T-Score at or below -2.5
== END 2024-10-28 02:26 ==
LOC: DI 02:06
PROVIDERS: PCP Nurse Practitioner Family; Visit Provider Nurse Practitioner Family
DX: Z12.31 Encounter for screening mammogram for malignant neoplasm of breast (principal); Z13.820 Encounter for screening for osteoporosis; N95.9 Unspecified menopausal and perimenopausal disorder; M85.89 Other specified disorders of bone density and structure, multiple sites
CPT/HCPCS: 77063; 77067; 77080

== ENCOUNTER 2024-10-28 03:19 | Outpatient (CLI) | payer MEDICARE, OTHER, SELFPAY ==
[2024-10-28 08:49] LABS: Anion Gap 6.7 mmol/L (3-11); BUN 16 mg/dL (7-18); CO2 31.3 mmol/L (21.0-32.0); CREATININE 0.9 mg/dL (0.55-1.02); Calcium 9.3 mg/dL (8.5-10.1); Calculated LDL 172 mg/dL (<100); Chloride 106 mmol/L (98-107); Cholesterol 260 mg/dL (<200); Estimated GFR 69.64 (mL/min/1.73m2); Glucose 82 mg/dL (74-106); HDL Cholesterol 57 mg/dL (40-60); Potassium 4.3 mmol/L (3.5-5.1); Sodium 144 mmol/L (136-145); Triglyceride 157 mg/dL (<150)
== END 2024-10-28 03:20 | disposition home or self-care (01) ==
LOC: LBO 03:19
PROVIDERS: PCP Nurse Practitioner Family; Visit Provider Nurse Practitioner Family
DX: Z13.6 Encounter for screening for cardiovascular disorders (principal); Z13.1 Encounter for screening for diabetes mellitus
CPT/HCPCS: 36415; 80048; 80061

== ENCOUNTER 2025-10-19 01:29 | Outpatient (CLI) | payer MEDICARE, OTHER, SELFPAY ==
[2025-10-19 15:40] LABS: Hemoglobin A1C 5.5 % (<5.7)
[2025-10-19 16:05] LABS: Anion Gap 7 mmol/L (3-11); BUN 17 mg/dL (9-23); CO2 29.0 mmol/L (20.0-31.0); Calcium 9.5 mg/dL (8.3-10.6); Chloride 107 mmol/L (98-107); Cholesterol 237 mg/dL (<200); Glucose 76 mg/dL (74-106); HDL Cholesterol 54 mg/dL (>40); Potassium 4.2 mmol/L (3.5-5.1); Sodium 143 mmol/L (136-145)
== END 2025-10-19 01:30 | disposition home or self-care (01) ==
PROVIDERS: PCP Nurse Practitioner Family; Visit Provider Nurse Practitioner Family
DX: Z13.1 Encounter for screening for diabetes mellitus (principal); I10 Essential (primary) hypertension; Z13.6 Encounter for screening for cardiovascular disorders
CPT/HCPCS: 36415; 80048; 80061; 83036

== ENCOUNTER → 2025-11-01 00:19 | Outpatient (CLI) | payer MEDICARE, OTHER, SELFPAY ==
--- NOTE | 2025-11-01 07:59 | DI.MAMMO_ITS ---
Exam(s) MAMMO SCREENING EXAM: MAMMO SCREENING CLINICAL HISTORY: screening,Z12.39 TECHNIQUE: Bilateral full field digital CC and MLO mammographic images were obtained with 3D tomosynthesis and utilizing computer aided detection (CAD). COMPARISON: Comparison is made with prior examinations. FINDINGS: Masses/Architectural Distortion: No suspicious masses or areas of architectural distortion are present. Microcalcifications: No suspicious pleomorphic-type are seen. Skin Thickening/Nipple Retraction: None. IMPRESSION: 1. No significant interval change with no specific features of malignancy noted. 2. Unless there is more urgent need, screening mammography is recommended, as per [place] [employer] guidelines. BI-RADS Category 1 - Negative Breast Density - Category B - There are scattered areas of fibroglandular density. Breast density Category C or D implies that the patient has dense breast tissue. Dense breast tissue can make it harder to find cancer on a mammogram. Dense breast tissue is also associated with an increased risk of breast cancer. This information about the result of the mammogram report was provided to the patient to raise their awareness. Use this report when you speak with the patient about their risks for breast cancer, which includes their family history. At that time, you may recommend additional screening tests (Ultrasound or MRI) as these tests may add significant information. A negative radiographic report should not delay biopsy if a dominant or clinically suspicious mass is present. Up to ten percent of cancers are not identified on mammography. A negative report may reinforce clinical impression. Adenosis and dense breasts may obscure an underlying neoplasm. False positive reports average 6 to 10%. Patient will receive a letter notifying them of these results.
== END ==
PROVIDERS: PCP Nurse Practitioner Family; Visit Provider Nurse Practitioner Family
DX: Z12.31 Encounter for screening mammogram for malignant neoplasm of breast (principal)
CPT/HCPCS: 77063; 77067